=== PATIENT | female | born 1975 | race Caucasian/White ===

== ENCOUNTER 2018-11-29 15:46 | Inpatient (IN) | payer OTHER ==
[~2018-11-29] VITALS: Ht 162.6 cm; Wt 120.0 kg
--- NOTE | 2018-11-29 15:53 | NUR ---
PATIENT WITH ALOC BIB [facility] WITH INTENTIONAL INGESTION OF APPROX 15 100MG TRAZODONE AND 30 10MG LISINOPRIL PILLS. PT STS WITH SLURRED SPEECH THAT "I JUST WANT TO END IT ALL, I AM A DNR AND I AM REFUSING ANY CARE". WHEN ASKED WHAT ELSE SHE TOOK, SHE STATED "I DRANK ALCOHOL, I HAD METH, AND SMOKE MARIJUANA". PT COULDN'T REMEMBER WHEN. BREATHING E/U, SKIN WARM, DRY. PT PLACED ON ALL MONITORS FOR FURTHER OBSERVATION. WILL CONTINUE TO MONITOR.
--- NOTE | 2018-11-29 16:23 | NUR ---
SPOKE WITH REJI, WITH POISON CONTROL. SEIZURE PRECAUTIONS TO BE IMPLEMENTED WITH SUPPORTIVE CARE, OBSERVE PATIENT X 6 HOURS- IF QTC > 500 TX WITH 2 GMS OF MAG. IF PATIENT HAS A SEIZURE TX WITH BENZO'S. REPEAT EKGS. NO CHARCOAL INDICATED DUE TO ASPIRATION RISK. CONTINUE TO MONITOR CLOSELY.
[2018-11-29 16:36] LABS: PLATELET COUNT 295 x10^3mcL (130-400); RED CELL DISTRIBUTION WIDTH 13.6 % (11.5-14.5)
--- NOTE | 2018-11-29 16:37 | NUR ---
PATIENT REFUSED XRAY- WILL CONTINUE TO MONITOR.
[2018-11-29 16:38] LABS: CALCIUM 8.4 mg/dL (8.5-10.1); CARBON DIOXIDE 23.4 mmol/L (21-32); CHLORIDE SERUM 106 mmol/L (98-107); CREATININE SERUM 1.4 mg/dL (0.6-1.0); GFR1 44 mL/min; GLUCOSE SERUM 126 mg/dL (74-106); POTASSIUM SERUM 3.1 mmol/L (3.5-5.1); SODIUM SERUM 141 mmol/L (136-145)
--- NOTE | 2018-11-29 16:39 | NUR ---
PATIENT PLACED IN FRONT OF NURSING STATION. CURTAINS OPEN, SAFETY CHECK OF ROOM COMPLETE. PTS BELONGINGS TAGGED AND PLACED IN SHOWER ROOM NEXT TO ROOM. WILL CONTINUE TO MONITOR.
[2018-11-29 16:43] LABS: ALBUMIN 3.5 g/dL (3.4-5.0); ALKALINE PHOSPHATASE 115 U/L (46-116); ALT/SGPT 28 U/L (14-59); AST/SGOT 27 U/L (15-37); CHOLESTEROL 151 mg/dL (<200); HDL CHOLESTEROL 38 mg/dL (40-60); PHOSPHOROUS 3.4 mg/dL (2.5-4.9); TOTAL PROTEIN, SERUM 7.2 g/dL (6.4-8.2)
--- NOTE | 2018-11-29 17:35 | NUR ---
MEDICATED PER MD ORDERS. WILL CONTINUE TO MONITOR.
--- NOTE | 2018-11-29 17:41 | NUR ---
PATIENT RESTING ON GURNEY- ON BACK IN A POSITION OF COMFORT. BREATHING E/U, NAD NOTED. WILL CONTINUE TO MONITOR.
--- NOTE | 2018-11-29 17:48 | NUR ---
HOLD RITA-SYNEPHRINE PER DR OLSEN DUE TO BP BEING STABLE AT THIS TIME. SHOULD BP DROP, OK TO ADMINISTER MEDICATION.
--- NOTE | 2018-11-29 18:59 | NUR ---
REQUESTED PHARMACY DELIVER RITA-SYNEPHRINE PER MD ORDERS FOR DROP IN BP. WAITING FOR PHARMACY TO DELIVER. MD AWARE OF BP DROP-- PATIENT STABLE AND ANSWERING QUESTIONS APPROPRIATELY.
--- NOTE | 2018-11-29 19:14 | NUR ---
PROVIDED REPORT TO MERA MARTIN FOR CONTINUED CARE OF PATIENT.
--- NOTE | 2018-11-29 19:15 | NUR ---
PT REPORT RECEIVED FROM MARY TESFAYE TO ASSUME PT CARE. PT RESTING COMFORTABLY AT THIS TIME AND ON FULL CM. PT WAKES TO VERBAL STIMULI BUT VERY SOMNOLENT AND FALLS ASLEEP IN THE MIDDLE OF HER SENTANCES. 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 PT IS AN ICU HOLD AT THIS TIME. MYSELF AT BEDSIDE FOR CLOSE MONITORING OF PT.
--- NOTE | 2018-11-29 19:30 | NUR ---
PT PLACED IN [place] FOR BP SUPPORT. PT ON FULL CM IN VIEW OF NURSE'S STATION.
--- NOTE | 2018-11-29 19:41 | NUR ---
PT DOES NOT AROUSE TO PAINFUL STIMULI, BP NOTED AT 75/35 MAP OF 51. NEOSYNEPHRINE DRIP INITIATED AT 50MCG/MIN PER EMAR. PT RESTING COMFORTABLY IN BED AND REMAINS ON FULL CM. RN AT BEDSIDE AT THIS TIME.
--- NOTE | 2018-11-29 19:42 | NUR ---
CORRECTION TO ABOVE NOTE: PT AROUSABLE TO PAINFUL STIMULI HOWEVER, PT UNABLE TO ANSWER QUESTIONS ASSESSING LOC. PT REMAINS ALTERED AT THIS TIME.
--- NOTE | 2018-11-29 20:11 | NUR ---
NEOSYNEPHRINE DRIP TITRATED PER PROTOCOL FOR BP OF 88/39 MAP OF 57. PT REMAINS SOMNOLENT RESTING IN A POSITION OF COMFORT, PT REMAINS ON FULL CM.
--- NOTE | 2018-11-29 20:22 | NUR ---
SPOKE WITH JETHRO FROM POISON CONTROL AND PER JETHRO WE ARE PROVIDING APPROPRIATE CARE FOR LISINOPRIL AND TRAZADONE OVERDOSE WITH BP SUPPORT MEDICATION. JETHRO PROVIDED WITH LABS AND RECENT VITAL SIGNS. PER JETHRO, HE WILL FOLLOW UP LATER FOR AN UPDATE.
--- NOTE | 2018-11-29 20:41 | NUR ---
NEOSYNEPHRINE DRIP INCREASED TO 100MCG/MIN PER PROTOCOL FOR BP 88/36 MAP OF 53 PT BP CUFF REMAINS ON R THIGH, PT REFUSING BP ON ARM.
--- NOTE | 2018-11-29 21:03 | NUR ---
ATTEMPTED TO OBTAIN HOME MEDICATION LIST AND BELONGINGS LIST HOWEVER, PT REMAINS SOMNOLENT.
--- NOTE | 2018-11-29 21:09 | NUR ---
PT REPORT CALLED TO MELISSA TESFAYE TO ASSUME PT CARE.
--- NOTE | 2018-11-29 21:20 | NUR ---
RECEIVED PT VIA GURNEY FROM ER ACCOMPANIED BY RN AND EMT. PT TRANSFERRED TO ICU BED 3 WITH NO COMPLICATION. PT CONNECTED TO FULL JACK SPINNER READING NSR WITH PROLONGED QT. VITALS UPON ADMISSION: HR 81, NIBP 85/48 MAP 56, RR 19, SPO2 98% ON RA, TEMP 97.9. PT IS A/OX4, SLOW TO ANSWER QUESTIONS. PUPILS WITH SLUGGISH RESPONSE TO LIGHT, 3 MM BILAT. DENIES WHITTAKER. GCS=15. SEIZURE PRECAUTION IN PLACE. EENT FREE OF DISCHARGE. ORAL MUCOSA PINK AND MOIST. NO JVD NOTED. TRACHEA MIDLINE. BREATHING IS E/U ON RA. LUNGS SOUND CLEAR BILAT. SYMMETRICAL CHEST EXPANSION NOTED. DENIES ANY SOB. S1/S2 HEART SOUNDS AUSCULTATED. DENIES ANY CP/DIZZINESS. PALPABLE PULSES X4 EXTREMITIES. SKIN IS WARM AND DRY. NO EDEMA NOTED. RH IV IN PLACE. PT REFUSING ANY FLUIDS AT THIS TIME INCLUDING VASOACTIVE MEDICATIONS. NO JOINT SWELLING/DEFORMITY NOTED. ACTIVE FULL ROM X4 EXTREMITIES. ABD IS SOFT, ROUND, NONTENDER TO PALPATION. BOWEL SOUNDS ACTIVE X4 QUADRANTS. PT NOT ANSWERING AT THIS TIME WHEN HER LAST BM WAS. PT VOIDS FREELY. NO LABIAL EDEMA/VAGINAL DISCHARGE NOTED. PT REFUSING SKIN ASSESSMENT AT THIS TIME. PT ON 5150 HOLD. REFUSING ANY TREATMENT AT THIS TIME. WHEN ASKED IF SHE STILL FELT SUICIDAL, PT STATED, "YOU KNOW. IT IS MY TIME TO GO. IT IS MY SPIRITUAL JOURNEY. I SHOULD HAVE BEEN GONE 30 YEARS AGO". PT IN VIEW OF THE NURSES STATION. BED IN LOW POSITION. WILL CONT TO MONITOR
--- NOTE | 2018-11-29 21:20 | NUR ---
PT TRANSFERRED TO ICU BED 3 BY BATSHEVA BY MYSELF AND LISSETT GUTIERREZ. PT ON FULL CM FOR TRANSPORT. PT ACCEPTED BY MELISSA TESFAYE TO ASSUME PT CARE. UPON TRANSFERRING PT TO ICU BED, IV ACCESS TO THE L AC LOST. IV CATHETER INTACT AT THIS TIME. PT REMAINS SOMNOLENT BUT MOVED TO ICU BED WITHOUT INCIDENT.
[2018-11-29 21:38] VITALS: BP 85/45
--- NOTE | 2018-11-29 21:38 | NUR ---
DR. GRIFFITH AT BEDSIDE SPEAKING WITH THE PT AT THIS TIME IN REGARDS TO REFUSING FLUIDS, VASOACTIVE MEDICATIONS, AND CODE STATUS. RISKS AND BENEFITS EXPLAINED OF REFUSING FLUIDS AND VASOACTIVE MEDICATIONS INCLUDING THE POSSIBILITY OF . PT VERBALIZES UNDERSTANDING AND STS, "I UNDERSTAND WHAT YOU ARE SAYING AND I DONT WANT ANYTHING DONE FOR ME. THIS IS MY SPIRITUAL JOURNEY. I SHOULD HAVE BEEN GONE 30 YEARS AGO. I DON'T WANT YOU GUYS TO DO ANYTHING FOR ME". DR. GRIFFITH EXPLAINED PT'S CURRENT CODE STATUS, PT VERBALIZES UNDERSTANDING AND REFUSES CARE AND ALL MEDICATIONS. PT ALERT AND ORIENTED TO PERSON PLACE TIME AND PURPOSE, GCS-15. PER DR. GRIFFITH, PT IN AGREEMENT TO DNR CODE STATUS.
--- NOTE | 2018-11-29 22:15 | NUR ---
DR. DRAKE AT BEDSIDE SPEAKING WITH THE PT IN REGARDS TO RECEIVING FLUIDS. PT CONTINUES TO REFUSE. PT STS, "IF YOU GIVE ME FLUIDS, IT IS GOING TO HELP WITH MY BLOOD PRESSURE AND I DONT WANT THAT TO HAPPEN. THIS IS MY SPIRITUAL CONVICTION. I HAVE A CHOICE AND THIS IS MY CHOICE. THE ONLY THING I AM CONTEMPLATING IS IF TELLING MY FAMILY". WHEN ASKED IF SHE WANTED US TO CALL HER FAMILY, PT STATED, "I DONT THINK IT WOULD MATTER. 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 I WASN'T THERE FOR THEM. MY YOUNGEST CHILDREN ARE CURRENTLY WITH MY OLDER CHILDER AND THEY ARE BETTER OFF THAT WAY. I KNOW I AM NEVER GOING TO CHANGE. THIS IS MY CONVICTION".
--- NOTE | 2018-11-29 22:19 | NUR ---
DR. GRIFFITH AND DR. DRAKE AT BEDSIDE SPEAKING WITH THE PT IN ATTEMPT TO GET INFORMATION IN REGARDS TO HER FAMILY AND SPONSOR.
--- NOTE | 2018-11-29 22:39 | NUR ---
PT SPEAKING WITH HER SPONSOR AT THIS TIME.
--- NOTE | 2018-11-29 22:46 | NUR ---
DNR CODE STATUS EXPLAINED TO THE PT, PT VERBALIZED UNDERSTANDING. ALL QUESTIONS/CONCERNS ADDRESSED. PT IS A/0X4. GCS=15. PT IN AGREEMENT TO BE MADE DNR. PER DR. GRIFFITH, HE WILL CHANGE HER CASH REGISTER MECHANIC STATUS TO DNR.
[2018-11-29 23:06] VITALS: BP 79/36
--- NOTE | 2018-11-29 23:22 | NUR ---
REFUSAL FORM TO PERMIT MEDICAL TREATMENT SIGNED BY THE PT, WITNESSED BY 3 RN'S. FORM PLACED IN CHART.
--- NOTE | 2018-11-29 23:57 | NUR ---
SPOKE TO POSION CONTROL REP TANO VIA TELEPHONE. UPDATED ON PT'S CURRENT STATUS. ALL QUESTIONS/CONCERNS ADDRESSED. PER REP, HE WILL CLOSE THE CASE AT THIS TIME.
--- NOTE | 2018-11-30 02:30 | NUR ---
PT IS SLEEPING, AROUSABLE. RISE AND FALL CHEST SYMMETRIC. NO S/S OF ACUTE DISTRESS NOTED. PT CONNECT TO FULL CM AND IN VIEW OF THE NURSES STATION
[2018-11-30 03:05] VITALS: BP 98/53
--- NOTE | 2018-11-30 05:02 | NUR ---
QUILL PICKING MACHINE OPERATOR AT BEDSIDE FOR AM BLOOD DRAW
[2018-11-30 05:17] LABS: BASOPHIL % 0.4 % (0-2); PLATELET COUNT 259 x10^3mcL (130-400); RED CELL DISTRIBUTION WIDTH 13.8 % (11.5-14.5)
[2018-11-30 05:34] LABS: CALCIUM 8.1 mg/dL (8.5-10.1); CARBON DIOXIDE 24.9 mmol/L (21-32); CREATININE SERUM 1.2 mg/dL (0.6-1.0); MAGNESIUM 1.9 mg/dL (1.8-2.4); PHOSPHOROUS 3.7 mg/dL (2.5-4.9); POTASSIUM SERUM 3.5 mmol/L (3.5-5.1)
--- NOTE | 2018-11-30 07:10 | NUR ---
REPORT GIVEN TO TRENT TESFAYE. ALL QUESTIONS/CONCERNS ADDRESSED. ENDORSING ALL CARE
[2018-11-30 07:51] VITALS: Ht 162.6 cm; Wt 120.0 kg
[2018-11-30 08:00] VITALS: BP 87/51
--- NOTE | 2018-11-30 08:00 | NUR ---
RC'D PT RESTING IN BED WITH NO APPARENT SIGNS OF DISTRESS. PT ALERT/AWAKE. CURRENT 5150, DANGER TO SELF. PT A/A/O/C4, SPEECH CLEAR AND APPROPRAITE. PT DENIES WHITTAKER/DIZZINESS. PT ABLE TO FOLLOW SIMPLE COMMANDS AND ABLE TO MAKE NEEDS KNOWN. PERRLA. NO FACIAL DROOP NOTED. NO EENT DRAINAGE NOTED. RESP E/U. LUNGS DIM IN BASES. ON RA, PT DENIES SOB. SPO2 94%, NO RESP DISTRESS NOTED. NSR ON EDUCATION MANAGER, HR 74. S1S2 AUSCULTATED. PT DENIES CP. WEAK PALP PULSES TO BLE, NO EDEMA NOTED. CAP REFILL <3. SKIN WARM TO TOUCH AND CONSISTENT WITH ETHNICITY. GENERALIZED WEAKNESS. PT REPORTS "FALLING YESTERDAY". PT ABLE TO REPOSITION SELF. PT TOLERATES DIET. NO N/V NOTED. ABDOMEN ROUND AND NONTENDER. ACTIVE BS. NO BM NOTED. PT REPORTS VOIDING FREELY AND DENIES BURNING. PT REFUSED SKIN ASSESSMENT AT THIS TIME. PT REPORTING "IM GOING TO GO SOON (PASS AWAY) AND MY PHONE IS UNLOCKED SO YOU GUYS CAN LET PEOPLE KNOW" . BED IN LOWEST POSITION. CALL LIGHT IN REACH. WILL CONT TO MONITOR ,
--- NOTE | 2018-11-30 08:03 | NUR ---
PT REFUSED COLACE AT THIS TIME. WILL CONT TO MONITOR
--- NOTE | 2018-11-30 08:35 | NUR ---
DR WONG PRESENT AT BEDSIDE TO DISCUSS POC WITH PT. WILL CONT TO MONITOR
--- NOTE | 2018-11-30 10:02 | NUR ---
PATIENT ROUNDS WITH DR. ANTUNEZ AND RESIDENTS. CHARGE NURSE AND PRIMARY NURSE AT BEDSIDE. UPDATES PROVIDED AND POC DISCUSSED. WILL CONTINUE TO MONITOR.
--- NOTE | 2018-11-30 10:13 | NUR ---
PT RESTING IN BED WITH NO APPARENT S/S OF DISTRESS. RESP E/U. ON RA, SPO2 95%. NO RESP DISTRESS NOTED. WILL CONT TO RICHARD
--- NOTE | 2018-11-30 10:36 | NUR ---
INQUIRED WITH PT WHETHER SHE HAS FAMILY MEMBERS WHO CAN BE CONTACTED IN CASE OF AN EMERGENCY. PT STATES " I DO NOT WANT ANY FAMILY KNOWING I AM HERE. I AM COMPLETELY CAPABLE OF MAKING MY OWN DECISIONS. I WANT TO SPEAK TO THE DR WHO OVERRODE MY DNR. I DONT WANT ANY TREATMENT OR ANYONE ADDED TO MY FILE". DR KRAUS TO BE NOTIFIED AND CHARGE NURSE NOTIFIED AND MADE AWARE AT THIS TIME. WILL CONT TO MONITOR
--- NOTE | 2018-11-30 10:51 | NUR ---
PT STATES "I DONT WANT ANY VISITORS. DONT LET ANYONE COME" ICU STAFF NOTIFIED AND MADE AWARE. WILL CONT TO MONITOR
--- NOTE | 2018-11-30 10:59 | NUR ---
SPO2 RANGING FROM 70'S-80'S. PT EDUCATED ON PURPOSE OF USING NC AT THIS TIME. PT VERALIZED UNDERSTANDING BUT REFUSED AND SAID "NO IM OKAY, I KNOW MY OXYGEN IS LOW". PT REMOVING BP CUFF AND REFUSING TO PUT THEM ON. WILL CONT TO MONITOR
--- NOTE | 2018-11-30 13:53 | NUR ---
RC'D CALL FROM DAUGHTER NAYA REGARDING VISITING PT. PER PT OKAY FOR DAUGHTER NAYA TO VISIT AT THIS TIME. ROOF BOLTER HELPER CALLED AND NOTIFIED. WILL CONT TO MONITOR
--- NOTE | 2018-11-30 15:08 | NUR ---
PT RESTING IN BED WITH NO APPARENT SIGNS OF DISTRESS. RESP E/U. ON RA, SPO2 93%. WILL CONT TO MONITOR
[2018-11-30 15:30] VITALS: BP 137/83
--- NOTE | 2018-11-30 16:31 | NUR ---
REPORT CALLED AND GIVEN TO CHAR TESFAYE, PT TO TRANSFER TO ROOM 246. CHAR UPDATED ON PT CURRENT STATUS. ALL QUESTIONS AND CONCERNS ADDRESSED. WILL CONT TO MONITOR
[2018-11-30 17:40] VITALS: BP 85/52
--- NOTE | 2018-11-30 17:40 | NUR ---
ARRIVED FROM ICU AT 1733. 1:1 SITTER PRESENT, SHE CAME INTO ROOM AND SHE WENT TO THE BATHROOM TO HAVE A BM, SITTER WATCHING FROM DOORWAY. IV SITE CDI. COOPERATIVE. DAUGHTER AT BEDSIDE. TELE # 32 SR 94.
[2018-11-30 17:58] VITALS: BP 115/76
--- NOTE | 2018-11-30 18:59 | NUR ---
DR WALEKRED AWARE THAT HER BP SINCE ARRIVAL TO ROOM 246 AFTER TRANSFER FROM ICU, IS 85/52, MAP 63, HR 83. HE STATES THIS IS FINE, HE WILL WRITE PARAMETERS FOR LOW BP AND BOLUSES.
--- NOTE | 2018-11-30 19:30 | NUR ---
PT RECIEVED FROM DAY NURSE. PT RESTING IN BED AT THIS TIME, ASLEEP BUT AROUSABLE. NO S/S OF PAIN OR DISCOMFORT NOTED AT THIS TIME. TELE 32, SR. NO S/S OF CP OR NV. BREATHING E/U ON 2 L NC. GENERALIZED WEAKENSS, AMBULATES WITH ASSIST. IV TO RH CDI. BED AT LOWEST POSITION. SZ IN PLACE. CALL LIGHT WITHIN REACH. WILL CONTINUE TO MONITOR.
[2018-11-30 20:49] VITALS: BP 84/52
--- NOTE | 2018-12-01 | NUR ---
PT RESTING IN BED AT THIS TIME. NO S/S OF PAIN OR DISCOMFORT AT THIS TIME. BREATHING E/U ON 2L NC. NO SIGNS OF ACUTE DISTRESS AT THIS TIME. BED AT LOWEST POSITION. CALL LIGHT WITHIN REACH. WILL CONTINUE TO MONITOR.
[2018-12-01 04:42] VITALS: BP 96/67
--- NOTE | 2018-12-01 05:33 | NUR ---
PT RESTING IN BED COMFORTABLY AT THIS TIME. DENIES PAIN OR DISCOMFORT. SITTER AT BEDSIDE. BREATHING E/U ON RA. NO SIGNS OF DISTRESS NOTED. ALL NEEDS AND CONCERNS ADDRESSED THIS SHIFT. BED AT LOWEST POSITION. CALL LIGHT WITHIN REACH. WILL ENDORSE TO DAY NURSE.
[2018-12-01 06:34] LABS: BASOPHIL % 0.8 % (0-2); PLATELET COUNT 242 x10^3mcL (130-400); RED CELL DISTRIBUTION WIDTH 13.5 % (11.5-14.5)
[2018-12-01 06:44] LABS: CALCIUM 8.3 mg/dL (8.5-10.1); CARBON DIOXIDE 25.7 mmol/L (21-32); CHLORIDE SERUM 107 mmol/L (98-107); CREATININE SERUM 0.8 mg/dL (0.6-1.0); GFR1 > 60 mL/min; GLUCOSE SERUM 91 mg/dL (74-106); MAGNESIUM 1.9 mg/dL (1.8-2.4); PHOSPHOROUS 3.7 mg/dL (2.5-4.9); POTASSIUM SERUM 3.3 mmol/L (3.5-5.1); SODIUM SERUM 142 mmol/L (136-145)
--- NOTE | 2018-12-01 08:11 | NUR ---
AAO TIMES 4. TELE # 32 SR. DENIES SUICIDAL IDEATION. , WITH 1:1 SITTER. LUNGS CTA. NO SOB. O2 SAT ON RA 94%. BS'S ACTIVE TIMES 4. STYLES WITH SLIGHT GENERALIZED WEAKNESS. PERIPHERAL PULSES PALPABLE. NO EDEMA. COOPERATIVE THIS AM.
[2018-12-01 08:41] VITALS: BP 103/54
[2018-12-01 13:00] VITALS: BP 94/54
--- NOTE | 2018-12-01 13:14 | NUR ---
Received packet. Will look for placement.
[2018-12-01 13:24] VITALS: BP 94/54
--- NOTE | 2018-12-01 13:28 | NUR ---
Packet faxed to [facility]nd [facility]HU at [facility] for possible direct admit.
--- NOTE | 2018-12-01 17:35 | NUR ---
AAO TIMES 4. TELE # 32 SR. NO C/O PAIN. NO SOB. VS'S STABLE. SALINE LOCK PATENT. 1:1 SITTER AT BEDSIDE. SEIZURE PRECAUTIONS. BRP ASSIST. DENIES SUICIDAL IDEATION.
[2018-12-01 18:19] VITALS: BP 113/88
--- NOTE | 2018-12-01 19:40 | NUR ---
REC'D PT FROM DAY NURSE. PT RESTING IN BED. AAOX4, SPEECH CLEAR, FOLLOWS COMMANDS. PT ON 5150 HOLD, SITTER AT BEDSIDE. INQUIRED IF PT IS ACTIVELY SUICIDAL. PT LOOKED AT ME, SHRUGGED, AND STATED "I'M NOT TELLING YOU." MED SURG, NO TELE. DENIES CP, DIZZINESS, OR PALPITATIONS. DENIES RESP DISTRESS OR SOB. BREATHING EVEN/UNLABORED ON RA. ABD SOFT/ROUND. DENIES ABD PAIN, TENDERNESS, OR N/V. VOIDING FREELY. AMBULATORY. IV TO . PT REFUSED FLUSHING. SITE WNL. REQUESTING TO SHOWER, DR. STEPHENS MADE AWARE VIA [employer]. CALL LIGHT WITHIN REACH, BED AT LOWEST POSITION. WILL CONTINUE TO MONITOR.
--- NOTE | 2018-12-01 19:51 | NUR ---
CALLED ANGELA [phone], EMPLOYMENT LAW ATTORNEY. MADE AWARE DR. BECKMAN HAD PUT THE PT ON A 5150 HOLD AND REQUIRES 1:1 SUPERVISION. WAITING FOR CALL BACK FOR POSSIBLE BED AVAILABILITY.
--- NOTE | 2018-12-01 20:03 | NUR ---
ASKED PT IF SHE WOULD LIKE FOR ME TO INFORM ANYONE OF HER TRANSFER IF SHE LEAVES TONIGHT. PT STATED "NO. NO ONE WHO WOULD GIVE A SH*T ABOUT ME." INFORMED OF POSSIBLE TRANFER TONIGHT AND REWRITTEN 5150 HOLD. PT UPSET AND STATED SHE WOULD LIKE A SECOND OPINION REGARDING THE HOLD. INFORMED THE PT A NEW PSYCHIATRIST WILL EVALUATE HER AT ANOTHER FACILITY.
--- NOTE | 2018-12-01 20:09 | NUR ---
PT WILL BE TRANSFERRED TO [facility]. ROOM 210. RECEIVING PHYSICIANS: DR. SHANKS (MEDICAL) & DR. GALAVIZ (PSYCH). REPORT GIVEN TO OSEAS TESFAYE, DR. WALKERED PAGED TO COMPLETE DISCHARGE ORDER.
--- NOTE | 2018-12-01 20:31 | NUR ---
INFORMED PT OF PLAN TO TRANSFER. PT AGREEABLE TO TRANSFER AND APOLOGIZED FOR BEHAVIOR EARLIER. REQUESTED TO INFORM HER DAUGHTER, NAYA MARQUEZ, OF HER TRANSFER TO [facility]. CALLED NAYA [phone] AND MADE AWARE.
--- NOTE | 2018-12-01 20:38 | NUR ---
REC'D CALL BACK FROM DR. STEPHENS. INFORMED OF PT'S TRANSFER AND NEED FOR DISCHARGE ORDER.
--- NOTE | 2018-12-01 21:13 | NUR ---
CUTLERY GRINDER TIME ARRANGED FOR 2300 BY [facility]. OSEAS TESFAYE FROM [place] NOTIFIED.
--- NOTE | 2018-12-01 21:55 | NUR ---
[facility] AT BEDSIDE. REPORT GIVEN. IV TO RH REMOVED, CATHETER INTACT. TELE D/C'D. PT CHANGED TO HER OWN CLOTHES. DISCHARGE PAPERWORK SIGNED. ALL BELONGINGS WITH PT.
== END 2018-12-01 21:57 | DRG 917 ==
LOC: ED 15:46 → IC 18:20 → DU 18:20 → IC 21:19 → DU 11-30 17:33
PROVIDERS: Emergency Medicine; ADMIT Internal Medicine
DX: T43.212A Poisoning by selective serotonin and norepinephrine reuptake inhibitors, intentional self-harm, initial encounter (principal); G92 Toxic encephalopathy; N17.0 Acute kidney failure with tubular necrosis; F33.9 Major depressive disorder, recurrent, unspecified; T46.4X2A Poisoning by angiotensin-converting-enzyme inhibitors, intentional self-harm, initial encounter; I95.2 Hypotension due to drugs; E83.51 Hypocalcemia; E87.6 Hypokalemia; F17.210 Nicotine dependence, cigarettes, uncomplicated; F15.10 Other stimulant abuse, uncomplicated; F12.10 Cannabis abuse, uncomplicated; G40.909 Epilepsy, unspecified, not intractable, without status epilepticus; Z66 Do not resuscitate; Z68.39 Body mass index [BMI] 39.0-39.9, adult; Y92.239 Unspecified place in hospital as the place of occurrence of the external cause
CPT/HCPCS: 83880; G0378; G0480; J2370; J3480; J7030